=== PATIENT | female | born 1980 | race Caucasian/White ===

== ENCOUNTER 2017-01-06 16:25 | Emergency (ER) | payer OTHER ==
[~2017-01-06] VITALS: Ht 144.8 cm; Wt 78.0 kg
[2017-01-06 16:26] VITALS: BP 138/77; PULSE 97; RESP 12; TEMP 98.8; O2SAT 98
--- NOTE | 2017-01-06 17:25 | PD ---
HPI Chief Complaint: Skin Problem Time Seen by Provider: 17:25 Travel History International Travel<30 days: No Contact w/Intl Traveler<30days: No Traveled to known affect area: No History of Present Illness HPI 36-year-old female presents to the emergency Department with complaint of an abscess to her right armpit 2-3 days. Has had abscesses before but not like this. Denies fever, chills. Reports nausea without vomiting. Has not taken any medications or tried any treatments to alleviate her symptoms. Pain is aggravated with palpation and is constant. No known relieving factors. Allergies to penicillin. Does not have primary care provider. History of hypertension and currently takes medications. No other modifying factors or associated signs and symptoms. PFSH Past Medical History Cardiovascular Problems: Yes (HTN) Social History Tobacco Use: No Allergies-Medications (Allergen,Severity, Reaction): Coded Allergies: Penicillin (Verified Allergy, Severe, CLOSES THROAT, 01/06/17) Reported Meds & Prescriptions Reported Meds & Active Scripts Active Ibuprofen 800 Mg Tab 800 Mg PO Q6HR PRN Clindamycin (Clindamycin HCl) 150 Mg Cap 450 Mg PO Q6H 10 Days Review of Systems Except as stated in HPI: all other systems reviewed are Neg Physical Exam Narrative GENERAL: Well-nourished, well-developed female patient, in no acute distress SKIN: There is an indurated area in the right axilla which measures about 3 cm in diameter. It is fluctuant but there is no pointing or drainage. There is a zone of inflammation around it but no lymphangitis. Right upper extremity supple and nontender to plus radial pulses and sensory intact without erythema or edema. HEAD: Atraumatic. Normocephalic. EYES: Pupils equal and round. No scleral icterus. No injection or drainage. ENT: Mucosa pink and moist. Airway patent. NECK: Trachea midline. CARDIOVASCULAR: Regular rate. RESPIRATORY: No accessory muscle use. GASTROINTESTINAL: Round. MUSCULOSKELETAL: No obvious deformities. No clubbing. No cyanosis. No edema. NEUROLOGICAL: Awake and alert. Oriented 3. No obvious cranial nerve deficits. Motor grossly within normal limits. Normal speech. PSYCHIATRIC: Appropriate mood and affect; insight and judgment normal. Data Data Last Documented VS Vital Signs Date Time Temp Pulse Resp B/P Pulse Ox O2 Delivery O2 Flow Rate FiO2 01/06/17 16:26 98.8 97 12 138/77 98 Room Air Orders Wound Culture And Gram Stain (01/06/17 17:25) Lidocaine 1% Inj (50 Ml) (Xylocaine 1% I (01/06/17 17:30) Ketorolac Inj (Toradol Inj) (01/06/17 18:15) [facility] Medical Decision Making Medical Screen Exam Complete: Yes Emergency Medical Condition: Yes Medical Record Reviewed: Yes Differential Diagnosis Abscess, folliculitis, cellulitis Narrative Course 36-year-old female with an abscess to her right armpit. Afebrile. Nontoxic appearing. Denies fever, chills at home. Female procedure note for incision and drainage. Wound culture pending. Toradol administered in the ER prior to discharge. Patient is penicillin allergic. Clindamycin and ibuprofen prescribed for home. Patient is medically cleared and stable for discharge. Discussed reasons to return to the emergency department. Instructed patient to follow up with primary care provider. Patient agrees with treatment plan. The patients vital signs are stable and the patient is stable for outpatient follow- up and treatment. Patient discharged home, stable and in no acute distress. Procedures Procedure Narrative INCISION AND DRAINAGE OF ABSCESS: The area was prepped and was sterilely draped. A subcutaneous wheal of 1% Xylocaine with a total number 3 mL was used to anesthetize the area properly. A number 11 scalpel was used to make a 0.5 -cm incision across the area of the abscess. The abscess was drained, complex loculations were broken down, and irrigated with normal saline. Cultures were obtained. Quarter inch iodoform packing was placed in the wound. Sterile dressing applied. Patient advised to have packing removed in two days. Diagnosis Primary Impression: Abscess of right axilla Referrals: Primary Care Physician Patient Instructions: Abscess (ED), Abscess Follow-up (ED), Abscess Incision and Drainage (ED), General Instructions Departure Forms: Tests/Procedures, Work Release Enter return to work date: Jan 08, 2017 Additional Instructions: Complete full course of antibiotics Warm compresses to the affected area Keep area clean and dry Ibuprofen or Tylenol as instructed and as needed for pain and inflammation Return to the emergency department or follow-up with primary care provider in 48 hours for packing removal Follow-up with primary care provider Return to emergency department immediately with worsening of symptoms Med/Other Pt SpecificInfo: Prescription(s) given Scripts Ibuprofen 800 Mg [id number] Mg PO Q6HR PRN (PAIN) #30 TAB Ref 0 Prov:Mine Askew 01/06/17 Clindamycin 150 Mg [id number] Mg PO Q6H 10 Days Ref 0 Prov:Mine Askew 01/06/17 Disposition: 01 DISCHARGE HOME Condition: Stable Mine Askew Jan 06, 2017 17:25
[2017-01-06] MEDS ORDERED: LIDOCAINE HCL 1% 50 ML VIAL INFIL ONE (17:30)
[2017-01-06] MEDS ORDERED: CLIN1CAP5 PO (17:31)
[2017-01-06] MEDS ORDERED: IBUP800T23 PO (17:31)
[2017-01-06] MEDS ORDERED: KETOROLAC TROMETHAMINE 60 MG/2 ML (IM) VIAL IM ONE (18:15)
== END 2017-01-06 18:41 | disposition home or self-care (01) ==
LOC: NEPB 16:25
DX: L02.411 Cutaneous abscess of right axilla (principal); I10 Essential (primary) hypertension; B95.61 Methicillin susceptible Staphylococcus aureus infection as the cause of diseases classified elsewhere
CPT/HCPCS: 10061; 86403; 87070; 87077; 87186; 96374; 99283; J1885